=== PATIENT | male | born 1965 | race Caucasian/White ===

== ENCOUNTER 2017-07-06 09:54 | Inpatient (IN) | payer OTHER ==
[~2017-07-06] VITALS: Ht 177.8 cm; Wt 109.7 kg
[~2017-07-06 09:54] MED LIST: ACET-1256 PO; DIPH25CA65 PO; OMEP40CA PO; SERT-234 PO; TADA10TA PO
[2017-07-06 10:58] LABS: BASO % 0.5 %; BASO ABS # 0.04 K/uL (0-0.2); EOS % 1.8 %; EOS ABS # 0.14 K/uL (0-0.5); HEMATOCRIT 44.4 % (42-52); HEMOGLOBIN 15.3 g/dL (14.0-18.0); IG# 0.05 K/uL (0.00-0.02); LYMPH % 25.7 %; LYMPH ABS # 2.04 K/uL (1.2-3.4); MEAN CELL VOLUME 86.4 fL (80-100); MEAN CORPUSCULAR HEMOGLOBIN 29.8 pg (25-34); MEAN CORPUSCULAR HGB CONC 34.5 g/dl (32-36); MEAN PLATELET VOLUME 9.6 fL (7.4-10.4); MONO % 6.8 %; MONO ABS # 0.54 K/uL (0.11-0.59); NEUT % 64.6 %; NEUT ABS # 5.14 K/uL (1.4-6.5); PLATELET COUNT 175 K/uL (130-400); RED CELL DISTRIBUTION WIDTH CV 12.3 % (11.5-14.5); RED CELL DISTRIBUTION WIDTH SD 39.6 fL (36.4-46.3); WHITE BLOOD COUNT 7.95 K/uL (4.8-10.8)
--- NOTE | 2017-07-06 11:21 | DIAGNOSTIC IMAGING REPORT ---
CHEST ONE VIEW PORTABLE CLINICAL HISTORY: 52 years-old Male presenting with right cp eval for pna. TECHNIQUE: Portable upright AP view of the chest was obtained. COMPARISON: None. FINDINGS: Cardiomediastinal silhouette normal. Lungs and pleural spaces clear. Degenerative changes of the thoracic spine. Upper abdomen normal. IMPRESSION: 1. No acute cardiopulmonary disease. Electronically signed by: Jamal Sandy M.D. 07/06/2017 11:20 AM Dictated Date/Time: 07/06/2017 11:19 AM
[2017-07-06 11:36] LABS: PTT PATIENT 25.7 SECONDS (21.0-31.0)
[2017-07-06 11:47] LABS: CALCIUM 8.6 mg/dl (8.5-10.1); CREATININE 1.03 mg/dl (0.60-1.40); POTASSIUM 3.7 mmol/L (3.5-5.1)
[2017-07-06] MEDS ORDERED: ONDANSETRON INJ 2 MG/ML 2 ML VIAL IV STA (11:57)
[2017-07-06] MEDS ORDERED: MoRPHine SULFATE 10 MG/ML CARP/VIAL IV STA (11:57)
--- NOTE | 2017-07-06 12:51 | DIAGNOSTIC IMAGING REPORT ---
ABD/PELVIS WITHOUT FOR STONE CLINICAL HISTORY: 52 years-old Male presenting with right flank, chest pain that woke him up from sleep, similar also happened 2 weeks ago, eval for stone. TECHNIQUE: Multidetector CT of the abdomen and pelvis was performed without the use of intravenous contrast. IV contrast: None. A dose lowering technique was used consistent with the principles of ALARA (as low as reasonably achievable). COMPARISON: None. CT DOSE (mGy.cm): The estimated cumulative dose is 1999.03 mGy.cm. 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 Lung bases: Minimal basilar opacities, likely atelectasis. Multichamber enlargement of the heart. Coronary artery calcification. No pericardial or pleural effusion. Liver: Normal morphology. Density consistent with hepatic steatosis. Biliary: No gross biliary ductal dilatation allowing for noncontrast technique. Gallbladder contains gallstones. Pancreas: Mild parenchymal atrophy. Spleen: Normal noncontrast appearance. Splenule noted. Adrenal glands: Normal noncontrast appearance. Kidneys and ureters: Normal noncontrast appearance. No nephrolithiasis. No hydronephrosis. Normal ureters. Bladder: Incompletely evaluated secondary to underdistention. Pelvic organs: Prostate enlargement likely secondary to benign prostatic hyperplasia. Bowel: Diverticulosis of the descending and sigmoid colon. No pericolonic fat infiltration. The appendix is normal. No bowel obstruction. Feces noted in the distal small bowel likely indicating delayed transit. Peritoneal cavity: No free fluid or intraperitoneal gas. Lymph nodes: No gross lymphadenopathy allowing for noncontrast technique. Vasculature: Atherosclerosis of the normal caliber abdominal aorta. Abdominal wall: Bilateral varicoceles suggested. Fat-containing left inguinal hernia. Bilateral gynecomastia. Musculoskeletal: Degenerative changes of the spine. Limbus vertebral body at L5. Multiple prominent Schmorl's nodes. IMPRESSION: 1. Hepatic steatosis. Correlate with liver function tests to exclude steatohepatitis as a cause for abdominal pain. 2. Diverticulosis. No evidence of diverticulitis. 3. Cholelithiasis. No evidence of cholecystitis. 4. No nephrolithiasis or hydronephrosis. 5. Prostatomegaly. 6. Possible bilateral varicoceles. Electronically signed by: Jamal Sandy M.D. 07/06/2017 12:50 PM Dictated Date/Time: 07/06/2017 12:44 PM
[2017-07-06 14:30] LABS: ALBUMIN 3.7 gm/dl (3.4-5.0); TOTAL PROTEIN 7.4 gm/dl (6.4-8.2)
--- NOTE | 2017-07-06 14:57 | DIAGNOSTIC IMAGING REPORT ---
GALLBLADDER-ABD LIMITED CLINICAL HISTORY: 52 years-old Male presenting with ruq eval for cholecystitis. TECHNIQUE: Real-time grayscale and limited color Doppler ultrasound imaging of the abdomen limited to the right upper quadrant was performed. COMPARISON: None. FINDINGS: Pancreas: Largely obscured due to overlying bowel gas. Liver: Markedly hyperechogenic parenchyma with obscuration of the right hemidiaphragm, likely indicating marked hepatic steatosis. The liver measures 16.5 cm in maximal sagittal dimension. Focal fatty sparing in the gallbladder fossa. Main portal vein patent with normal directional flow. Biliary: No intrahepatic biliary ductal dilatation. Common bile duct measures up to 5 mm in diameter. Gallbladder: Gallstones without evidence of gallbladder distention, wall thickening, or pericholecystic fluid or inflammatory change. Gallbladder wall has an apparent thickness of 4 mm though it is poorly delineated secondary to the degree of hepatic steatosis. Right kidney: Normal in appearance. No hydronephrosis. Ascites: None. Other: None. IMPRESSION: 1. Cholelithiasis without evidence of biliary ductal dilatation. No convincing sonographic evidence of cholecystitis. If there is continuing clinical concern for this diagnosis, nuclear medicine HIDA scan could be obtained. 2. Hepatic steatosis. Correlate with liver function tests to exclude steatohepatitis as a cause for abdominal pain. Electronically signed by: Jamal Sandy M.D. 07/06/2017 2:55 PM Dictated Date/Time: 07/06/2017 2:53 PM
[2017-07-06] MEDS ORDERED: MoRPHine SULFATE 2 MG/ML CARP IV STA (16:04)
[2017-07-06] MEDS ORDERED: OPTIRAY 320 IV PRN (17:00)
--- NOTE | 2017-07-06 17:33 | DIAGNOSTIC IMAGING REPORT ---
(CHEST FOR PE) ANGIO WITH CLINICAL HISTORY: 52 years-old Male presenting with chest pain, ^eval for PE. TECHNIQUE: Multidetector CT angiography of the chest was performed after administration of intravenous contrast. 3-D volumetric and/or maximum intensity projection (MIP) images were subsequently reconstructed for review. IV contrast: 91 mL of Optiray 320. A dose lowering technique was used consistent with the principles of ALARA (as low as reasonably achievable). COMPARISON: Chest x-ray performed earlier the same day. CT DOSE (mGy.cm): The estimated cumulative dose is 579.55 mGy.cm. 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 Pulmonary vasculature: The study is suboptimal for the assessment of the pulmonary vascular tree secondary to respiratory motion artifact. Allowing for limited image quality, no central filling defect to suggest pulmonary embolus. Main pulmonary artery is not enlarged. No flattening of the interventricular septum. No intracardiac filling defect. No reflux of contrast into the hepatic veins. Remaining chest: On soft tissue windows, normal thyroid and thoracic inlet. No axillary, supraclavicular, hilar, or mediastinal lymphadenopathy. Normal aorta. Normal heart size. No pericardial or pleural effusion. Hepatic steatosis. On lung windows, focal consolidation in the lingula in a bandlike distribution. Mild subpleural reticulation and groundglass opacities dependently. Respiratory motion artifact degrades evaluation of lung parenchyma. Central airways patent. On bone windows, degenerative changes of the spine. IMPRESSION: 1. Allowing for suboptimal image quality, no evidence of pulmonary embolus. 2. Bibasilar atelectasis with focal subsegmental atelectasis or scarring in the lingula. No convincing evidence of other acute intrathoracic pathology. 3. Hepatic steatosis. Electronically signed by: Jamal Sandy M.D. 07/06/2017 5:31 PM Dictated Date/Time: 07/06/2017 5:26 PM
--- NOTE | 2017-07-06 17:37 | EMERGENCY ROOM VISIT NOTE ---
History Report prepared by Adilene: Madina Avilez Under the Supervision of: Dr. Bud Simmons M.D. First contact with patient: 10:39 Chief Complaint: CHEST PAIN Stated Complaint: CHEST PAIN Nursing Triage Summary: Pt states CP woke him up this AM, states same thing 2 weeks, but states lasted 2 hours, today pain not going away, denies being sweaty, states pain on right side, denies n/v, Pt a/ox4, skin w/d/i, color pink, pt states he feels hot, Lungs CTA abd soft positive BS, positive pulses History of Present Illness The patient is a 52 year old male who presents to the Emergency Room with complaints of constant chest pain starting 5 hours ago. The patient states that the pain is on the right side of his chest and shoots into his back. He describes the pain as sharp, a pressure, and a tightness. He notes that he is short of breath and it hasn't gone away. The patient states that nothing makes it worse. He states that he had this 2 weeks ago when he woke up in the middle of the night with it. He states that it went away after 2 hours and at the time he felt nauseous. The patient denies feeling nauseous today. The patient denies leg swelling and leg pain. 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 The patient denies ever having a clot in his legs or his lungs. He denies any abdominal pain and notes that the pain does not radiate into his arm or his neck. The patient notes a history of BPH, GERD, and anxiety. He denies this pain being like his GERD. The patient notes that he took his Cialis last night. The patient denies any urinary problems. Source of History: patient Onset: 5 hours ago Position: chest (right) Quality: pressure, sharp, other (tightness) Timing: constant Associated Symptoms: + SOB, + back pain, No nausea, No abdominal pain, No urinary symptoms Note: The patient denies leg swelling, leg pain, the pain radiating into his arm, and radiating into his neck. Review of Systems See HPI for pertinent positives & negatives. A total of 10 systems reviewed and were otherwise negative. Past Medical & Surgical Medical Problems: (1) Anxiety (2) BPH (benign prostatic hyperplasia) (3) Chest pain (4) GERD (gastroesophageal reflux disease) Family History Patient reports no known family medical history. Social History Smoking Status: Never Smoker Marital Status: Housing Status: lives with family Occupation Status: employed Current/Historical Medications Scheduled Omeprazole (Prilosec), 40 MG PO DAILY Sertraline (Zoloft), 100 MG PO BID Tadalafil (Cialis), 5 MG PO DAILY Scheduled PRN Acetaminophen (Tylenol), 1,000 MG PO Q6 PRN for Pain Allergies Coded Allergies: Aspirin (Unverified Allergy, Severe, STOMACH BLEEDING, 07/06/17) Adhesives (Unverified Allergy, Intermediate, RASH, 07/06/17) Ibuprofen (Unverified Allergy, Intermediate, RASH, 07/06/17) Physical Exam Vital Signs Date Time Temp Pulse Resp B/P (MAP) Pulse Ox O2 Delivery O2 Flow Rate FiO2 07/06/17 16:44 63 18 149/91 93 Room Air 07/06/17 15:30 61 18 138/92 93 Room Air 07/06/17 14:37 57 07/06/17 14:00 58 95 Room Air 154/103 07/06/17 13:30 59 17 161/94 98 Room Air 07/06/17 13:30 161/94 07/06/17 13:26 62 24 07/06/17 13:01 152/95 07/06/17 12:43 60 18 179/100 98 Room Air 07/06/17 12:43 179/100 07/06/17 12:26 64 07/06/17 12:21 55 18 147/106 95 Room Air 07/06/17 12:05 59 19 96 07/06/17 12:01 184/98 07/06/17 11:57 179/111 07/06/17 11:54 181/126 07/06/17 11:46 191/117 07/06/17 11:05 66 23 97 07/06/17 11:00 64 18 98 Room Air 150/100 07/06/17 10:54 61 16 97 07/06/17 10:50 100 Room Air 07/06/17 10:30 155/102 07/06/17 10:24 100 Room Air 07/06/17 10:24 65 07/06/17 10:23 181/107 07/06/17 10:17 161/98 07/06/17 10:17 100 Room Air 07/06/17 10:17 65 18 181/107 98 Room Air 07/06/17 10:04 36.4 66 18 170/99 95 Room Air Physical Exam Constitutional: Vital signs reviewed. Eyes: Pupils are equal round reactive to light. Conjunctiva are noninjected. ENT: Pharynx is clear without erythema or exudate. Mucous membranes are moist. Neck supple without meningeal signs. Respiratory: Clear to auscultation bilaterally. Breath sounds are equal bilaterally. Cardiovascular: Regular rate and rhythm. No rubs or gallops. GI: Soft, nondistended and nontender. Bowel sounds are present. Musculoskeletal: No peripheral edema. No lower extremity tenderness. No CVA tenderness. Integumentary: No cyanosis. Neurological: The patient is awake and alert. No focal deficits. Psychiatric: Normal affect. Medical Decision & Procedures ER Provider Diagnostic Interpretation: Radiology results as stated below per my review and the radiologist's interpretation: CHEST ONE VIEW PORTABLE CLINICAL HISTORY: 52 years-old Male presenting with right cp eval for pna. TECHNIQUE: Portable upright AP view of the chest was obtained. COMPARISON: None. FINDINGS: Cardiomediastinal silhouette normal. Lungs and pleural spaces clear. Degenerative changes of the thoracic spine. Upper abdomen normal. IMPRESSION: 1. No acute cardiopulmonary disease. Electronically signed by: Jamal Sandy M.D. 07/06/2017 11:20 AM Dictated Date/Time: 07/06/2017 11:19 AM ABD/PELVIS WITHOUT FOR STONE CLINICAL HISTORY: 52 years-old Male presenting with right flank, chest pain that woke him up from sleep, similar also happened 2 weeks ago, eval for stone. TECHNIQUE: Multidetector CT of the abdomen and pelvis was performed without the use of intravenous contrast. IV contrast: None. A dose lowering technique was used consistent with the principles of ALARA (as low as reasonably achievable). COMPARISON: None. CT DOSE (mGy.cm): The estimated cumulative dose is 1999.03 mGy.cm. FINDINGS: Outside Sales Representative topogram: Unremarkable. Lung bases: Minimal basilar opacities, likely atelectasis. Multichamber enlargement of the heart. Coronary artery calcification. No pericardial or pleural effusion. Liver: Normal morphology. Density consistent with hepatic steatosis. Biliary: No gross biliary ductal dilatation allowing for noncontrast technique. Gallbladder contains gallstones. Pancreas: Mild parenchymal atrophy. Spleen: Normal noncontrast appearance. Splenule noted. Adrenal glands: Normal noncontrast appearance. Kidneys and ureters: Normal noncontrast appearance. No nephrolithiasis. No hydronephrosis. Normal ureters. Bladder: Incompletely evaluated secondary to underdistention. Pelvic organs: Prostate enlargement likely secondary to benign prostatic hyperplasia. Bowel: Diverticulosis of the descending and sigmoid colon. No pericolonic fat infiltration. The appendix is normal. No bowel obstruction. Feces noted in the distal small bowel likely indicating delayed transit. Peritoneal cavity: No free fluid or intraperitoneal gas. Lymph nodes: No gross lymphadenopathy allowing for noncontrast technique. Vasculature: Atherosclerosis of the normal caliber abdominal aorta. Abdominal wall: Bilateral varicoceles suggested. Fat-containing left inguinal hernia. Bilateral gynecomastia. Musculoskeletal: Degenerative changes of the spine. Limbus vertebral body at L5. Multiple prominent Schmorl's nodes. IMPRESSION: 1. Hepatic steatosis. Correlate with liver function tests to exclude steatohepatitis as a cause for abdominal pain. 2. Diverticulosis. No evidence of diverticulitis. 3. Cholelithiasis. No evidence of cholecystitis. 4. No nephrolithiasis or hydronephrosis. 5. Prostatomegaly. 6. Possible bilateral varicoceles. Electronically signed by: Jamal Sandy M.D. 07/06/2017 12:50 PM Dictated Date/Time: 07/06/2017 12:44 PM GALLBLADDER-ABD LIMITED CLINICAL HISTORY: 52 years-old Male presenting with ruq eval for cholecystitis. TECHNIQUE: Real-time grayscale and limited color Doppler ultrasound imaging of the abdomen limited to the right upper quadrant was performed. COMPARISON: None. FINDINGS: Pancreas: Largely obscured due to overlying bowel gas. Liver: Markedly hyperechogenic parenchyma with obscuration of the right hemidiaphragm, likely indicating marked hepatic steatosis. The liver measures 16.5 cm in maximal sagittal dimension. Focal fatty sparing in the gallbladder fossa. Main portal vein patent with normal directional flow. Biliary: No intrahepatic biliary ductal dilatation. Common bile duct measures up to 5 mm in diameter. Gallbladder: Gallstones without evidence of gallbladder distention, wall thickening, or pericholecystic fluid or inflammatory change. Gallbladder wall has an apparent thickness of 4 mm though it is poorly delineated secondary to the degree of hepatic steatosis. Right kidney: Normal in appearance. No hydronephrosis. Ascites: None. Other: None. IMPRESSION: 1. Cholelithiasis without evidence of biliary ductal dilatation. No convincing sonographic evidence of cholecystitis. If there is continuing clinical concern for this diagnosis, nuclear medicine HIDA scan could be obtained. 2. Hepatic steatosis. Correlate with liver function tests to exclude steatohepatitis as a cause for abdominal pain. Electronically signed by: Jamal Sandy M.D. 07/06/2017 2:55 PM Dictated Date/Time: 07/06/2017 2:53 PM (CHEST FOR PE) ANGIO WITH CLINICAL HISTORY: 52 years-old Male presenting with chest pain, ^eval for PE. TECHNIQUE: Multidetector CT angiography of the chest was performed after administration of intravenous contrast. 3-D volumetric and/or maximum intensity projection (MIP) images were subsequently reconstructed for review. IV contrast: 91 mL of Optiray 320. A dose lowering technique was used consistent with the principles of ALARA (as low as reasonably achievable). COMPARISON: Chest x-ray performed earlier the same day. CT DOSE (mGy.cm): The estimated cumulative dose is 579.55 mGy.cm. FINDINGS: Outside Sales Representative topogram: Unremarkable. Pulmonary vasculature: The study is suboptimal for the assessment of the pulmonary vascular tree secondary to respiratory motion artifact. Allowing for limited image quality, no central filling defect to suggest pulmonary embolus. Main pulmonary artery is not enlarged. No flattening of the interventricular septum. No intracardiac filling defect. No reflux of contrast into the hepatic veins. Remaining chest: On soft tissue windows, normal thyroid and thoracic inlet. No axillary, supraclavicular, hilar, or mediastinal lymphadenopathy. Normal aorta. Normal heart size. No pericardial or pleural effusion. Hepatic steatosis. On lung windows, focal consolidation in the lingula in a bandlike distribution. Mild subpleural reticulation and groundglass opacities dependently. Respiratory motion artifact degrades evaluation of lung parenchyma. Central airways patent. On bone windows, degenerative changes of the spine. IMPRESSION: 1. Allowing for suboptimal image quality, no evidence of pulmonary embolus. 2. Bibasilar atelectasis with focal subsegmental atelectasis or scarring in the lingula. No convincing evidence of other acute intrathoracic pathology. 3. Hepatic steatosis. Laboratory Results 07/06/17 10:20 Red Blood Count 5.14, Mean Corpuscular Volume 86.4, Mean Corpuscular Hemoglobin 29.8, Mean Corpuscular Hemoglobin Concent 34.5, Mean Platelet Volume 9.6, Neutrophils (%) (Auto) 64.6, Lymphocytes (%) (Auto) 25.7, Monocytes (%) (Auto) 6.8, Eosinophils (%) (Auto) 1.8, Basophils (%) (Auto) 0.5, Neutrophils # (Auto) 5.14, Lymphocytes # (Auto) 2.04, Monocytes # (Auto) 0.54, Eosinophils # (Auto) 0.14, Basophils # (Auto) 0.04 07/06/17 11:19 Test 07/06/17 10:20 07/06/17 10:55 07/06/17 11:19 07/06/17 13:25 White Blood Count 7.95 K/uL (4.8-10.8) Red Blood Count 5.14 M/uL (4.7-6.1) Hemoglobin 15.3 g/dL (14.0-18.0) Hematocrit 44.4 % (42-52) Mean Corpuscular Volume 86.4 fL (80-100) Mean Corpuscular Hemoglobin 29.8 pg (25-34) Mean Corpuscular Hemoglobin Concent 34.5 g/dl (32-36) Platelet Count 175 K/uL (130-400) Mean Platelet Volume 9.6 fL (7.4-10.4) Neutrophils (%) (Auto) 64.6 % Lymphocytes (%) (Auto) 25.7 % Monocytes (%) (Auto) 6.8 % Eosinophils (%) (Auto) 1.8 % Basophils (%) (Auto) 0.5 % Neutrophils # (Auto) 5.14 K/uL (1.4-6.5) Lymphocytes # (Auto) 2.04 K/uL (1.2-3.4) Monocytes # (Auto) 0.54 K/uL (0.11-0.59) Eosinophils # (Auto) 0.14 K/uL (0-0.5) Basophils # (Auto) 0.04 K/uL (0-0.2) RDW Standard Deviation 39.6 fL (36.4-46.3) RDW Coefficient of Variation 12.3 % (11.5-14.5) Immature Granulocyte % (Auto) 0.6 % Immature Granulocyte # (Auto) 0.05 K/uL (0.00-0.02) Bedside D-Dimer 344 ng/mlFEU (0-450) Prothrombin Time 10.2 SECONDS (9.0-12.0) Prothromb Time International Ratio 1.0 (0.9-1.1) Activated Partial Thromboplast Time 25.7 SECONDS (21.0-31.0) Partial Thromboplastin Ratio 1.0 Anion Gap 6.0 mmol/L (3-11) Est Creatinine Clear Calc Drug Dose 102.8 ml/min Estimated GFR () 95.0 Estimated GFR (Non- 82.0 BUN/Creatinine Ratio 15.7 (10-20) Calcium Level 8.6 mg/dl (8.5-10.1) Total Bilirubin 0.9 mg/dl (0.2-1) Direct Bilirubin 0.2 mg/dl (0-0.2) Aspartate Amino Transf (AST/SGOT) 34 U/L (15-37) Alanine Aminotransferase (ALT/SGPT) 47 U/L (12-78) Alkaline Phosphatase 73 U/L (45-117) Total Protein 7.4 gm/dl (6.4-8.2) Albumin 3.7 gm/dl (3.4-5.0) Lipase 129 U/L (73-393) Urine Color YELLOW Urine Appearance CLEAR (CLEAR) Urine pH 5.0 (4.5-7.5) Urine Specific Meno 1.028 (1.000-1.030) Urine Protein NEG (NEG) Urine Glucose (UA) NEG (NEG) Urine Ketones NEG (NEG) Urine Occult Blood NEG (NEG) Urine Nitrite NEG (NEG) Urine Bilirubin NEG (NEG) Urine Urobilinogen NEG (NEG) Urine Leukocyte Esterase NEG (NEG) Test 07/06/17 16:15 Bedside Troponin I < 0.030 ng/ml (0-0.045) Laboratory results as reviewed by me. Medications Administered Medications (Trade) Dose Ordered Sig/Asmita Route Start Time Stop Time Status Last Admin Dose Admin Morphine Sulfate (MoRPHine SULFATE INJ) 6 mg NOW STAT IV 07/06/17 11:57 07/06/17 11:58 DC 07/06/17 12:08 6 MG Ondansetron HCl (Zofran Inj) 4 mg NOW STAT IV 07/06/17 11:57 07/06/17 11:58 DC 07/06/17 12:08 4 MG Morphine Sulfate (MoRPHine SULFATE INJ) 2 mg NOW STAT IV 07/06/17 16:04 07/06/17 16:05 DC 07/06/17 16:22 2 MG ECG Per My Interpretation Indication: chest pain Rate (beats per minute): 63 Rhythm: normal sinus Findings: Q waves (lead 3), other (no ST elevations) Comparison ECG Date: REPEAT Change: No prior available. REPEAT: Normal sinus rhythm at a rate of 62. Q wave in lead 3. No ST elevations. Unchanged from prior. ED Course 1041: The patient was evaluated in room A3. A complete history and physical exam was performed. 1156: I reevaluated the patient and his pain is much worse. He is nauseated. He states that the pain is more in the lower chest and upper abdomen. I will do a repeat EKG. 1157: Ordered Zofran Inj 4 mg IV, Morphine Sulfate 6 mg IV. 1301: I reevaluated the patient and he is feeling much better. 1315: I talked to the patient about his CT scan results. He states that he has been having right lower chest pain intermittently for 2 months. He reports that he has not noticed that it is related to food intake. No Menon sign currently. Minimal pain to palpation in RUQ on deep palpation. 1600: I reevaluated the patient and his pain is back. He is not short of breath. 1604: Ordered Morphine Sulfate 2 mg IV. 1643: I reevaluated the patient and his O2 was 88%, but he quickly climbed to 94 %. The states that it has been happening the whole time he has been here. 1659: I spoke with Dr. Robledo of [facility]. We discussed the patient and his results. The patient will be further evaluated by him. Medical Decision This is a 52-year-old male who presents with right-sided chest pain rating to his back. Differential diagnosis includes pulmonary embolism, unstable angina, [place], gallbladder disease, kidney stone. I did perform a limited focused review of portions of the patient's old chart on the electronic medical record. The patient has had no recent pertinent visits to this hospital. I did evaluate the patient as noted above. Patient is describing a sharp, tight and pressure-like pain in the right chest radiating to his right back. He had a prior episode about 2 weeks ago which only lasted a few hours. Today' s pain woke him up from sleep and has not gone away. IV access was established. The patient was placed on a continuous environmental monitoring technician. I did order and personally review the patient's 12-lead EKG and chest x-ray as described above. This twelve-lead EKG demonstrates a Q-wave in lead III only. Otherwise there are no ischemic changes. His chest x-ray is unremarkable. There is no widened mediastinum or infiltrate or pneumothorax. I did order and review the patient's blood work as noted in the electronic medical record. His troponin is negative. D-dimer is also negative. I did reassess the patient. The patient states his pain is getting much worse and he feels like he is going to throw up. He describes it in the upper abdomen and lower chest radiating to his back. He also further states that he has noticed similar pain in the right lower chest and upper abdomen for the past 2 months. It was sporadic and not related to any type of activity or eating. He was given morphine and Zofran for pain. He did feel much better afterwards. I did order a CT of the abdomen and pelvis. I did review the images myself as well as the radiology report as described above. The patient does not have any signs of kidney stone but he does have cholelithiasis. I did order an ultrasound of the right upper quadrant which demonstrated cholelithiasis but no evidence of cholecystitis. His LFTs are unremarkable. I did reassess the patient. He now states that his pain is now coming back. He again states that his pain is in the right upper abdomen and lower chest radiating to his back. He has no significant tenderness in the right upper quadrant. I did treat him with additional morphine and recommended hospitalization for further evaluation. I did discuss case with the hospitalist and showcase maker. I went to recheck on the patient later. He stated he felt better and his second troponin was negative. I noticed that his O2 saturation was 88% on room air with a good waveform. It slowly went up to 94 without any intervention. The stated that it has been doing that periodically throughout his ED stay. Because of this I felt was prudent to rule out pulmonary embolism. CT of the chest was performed but showed no evidence of pulmonary embolism. Medication Reconcilliation Current Medication List: was personally reviewed by me Blood Pressure Screening Patient's blood pressure: Elevated blood pressure Blood pressure disposition: Referred to PCP Will be further monitored by the hospitalist. Consults Time Called: 1604 Consulting Physician: Dr. Voss [facility] Returned Call: [address] Robledo of [facility]. We discussed the patient and his results. The patient will be further evaluated by him. Impression Primary Impression: Right flank pain Additional Impression: Cholelithiasis Scribe Attestation The scribe's documentation has been prepared under my direct and personally reviewed by me in its entirety. I confirm that the note above accurately reflects all work, treatment, procedures, and medical decision making performed by me. Departure Information Dispostion Being Evaluated By Hospitalist Referrals Jamal Echevarria M.D. (PCP) Patient Instructions [facility] Problem Qualifiers Additional Impression: Cholelithiasis Cholelithiasis location: gallbladder Cholecystitis presence: with cholecystitis Cholecystitis acuity: acute Biliary obstruction: without biliary obstruction Qualified Codes: K80.00 - Calculus of gallbladder with acute cholecystitis without obstruction
[2017-07-06] MEDS ORDERED: MoRPHine SULFATE 4 MG/ML 1 ML CARP\\VIAL IV PRN (17:45)
[2017-07-06] MEDS ORDERED: ALUMINUM/MAGNESIUM/SIMETH (MAALOX MAX) 30 ML UDC PO PRN (17:45)
[2017-07-06] MEDS ORDERED: NITROGLYCERIN 0.4 MG SL PER TAB CHARGE SL PRN (17:45)
[2017-07-06] MEDS ORDERED: ONDANSETRON INJ 2 MG/ML 2 ML VIAL IV PRN (17:45)
[2017-07-06] MEDS ORDERED: POLYETHYLENE (MIRALAX) 17 GM PACK PO PRN (17:45)
[2017-07-06] MEDS ORDERED: SERT-234 PO (17:47)
[2017-07-06] MEDS ORDERED: IV FLUIDS COMPLETED PRN (18:15)
[2017-07-06] MEDS: SODIUM CHLORIDE 0.9% 1000ML 1,000 ML IV SCH (18:30)
--- NOTE | 2017-07-06 18:56 | HISTORY & PHYSICAL EXAMINATION ---
DATE OF ADMISSION: 07/06/2017 CHIEF COMPLAINT: Right-sided chest pain. HISTORY OF PRESENT ILLNESS: A 52-year-old male with past medical history significant for GERD, anxiety, erectile dysfunction, lipid disorder, BPH, presents with right-sided abdominal pain. The patient says he woke up in the morning around 5:00 with severe lower right-sided chest pain radiating to his back associated with nausea and episode of vomiting and he came to the ER. The pain lasted almost until 3 p.m. and has subsided now. He received couple of doses of morphine in the ER. The patient says he had similar kind of pain a couple of weeks ago. At that time also he woke up in the night with the pain and it lasts about 2 hours and felt nauseous and then subsequently went to sleep. Since last 2 months he is feeling subjective fevers. Otherwise, he is doing okay. Denies any shortness of breath. No cough, no headaches, no dizziness, no earache. Recently had antibiotics for sinusitis. At that time, he had sore throat, but that is resolved now. No difficulty swallowing. No abdominal pain. Normal bowel and bladder movements. No skin rash. Currently, he is hemodynamically stable and resting comfortably. ALLERGIES: TO ASPIRIN, ADHESIVE TAPE, IBUPROFEN. PAST MEDICAL HISTORY: As mentioned above. PAST SURGICAL HISTORY: Colonoscopy, EGD, tonsillectomy, rotator cuff repair. MEDICATIONS AT HOME: The patient is on Prilosec 40 mg p.o. daily, Tylenol as needed, Zoloft 50 mg p.o. b.i.d. FAMILY HISTORY: Significant for father had basal cell cancer, diabetes, diverticulitis, [place] and had stents, obstructive sleep apnea, DJDs to the bone. Mother has osteoporosis, hypertension, heart disorder with CHF and stents. Brother has anxiety disorder. SOCIAL HISTORY: . Never smoked. Alcohol occasional. No drug use. REVIEW OF SYMPTOMS: As per HPI. Rest of review of symptoms negative. PHYSICAL EXAMINATION: GENERAL: The patient is of moderate build, not in distress. VITAL SIGNS: Temperature afebrile, pulse 62, respiratory rate 18, blood pressure 114/91 and oxygen 93% on room air. HEENT: No pallor, no icterus. Pupils equal, round, and react to light. NECK: No JVD, no neck masses, no carotid bruit. CARDIOVASCULAR: S1, S2 heard, regular rate and rhythm, no murmur, no gallop. RESPIRATORY SYSTEM: Normal AP diameter. No accessory muscle use. No wheezing, no crackles. ABDOMEN: Soft. Bowel sounds present. Nontender. No distention. No tenderness. CENTRAL NERVOUS SYSTEM: Cranial nerves II-XII grossly intact. Nonfocal. EXTREMITIES: No edema, no erythema. LABORATORIES: Sodium 140, potassium 3.7, chloride 109, bicarbonate 25, BUN 16, creatinine 1.03, serum glucose 146, calcium 8.6, total bilirubin 0.9, direct bilirubin 0.2, AST 34, ALT 47, alkaline phosphatase 73. Point of care troponin less than 0.03, lipase 129. WBC 7.9, hemoglobin 15.3, hematocrit 44.4, platelets 175. PT 10.2, INR 1, APTT 25.7. Urinalysis negative. Chest x-ray: No acute cardiopulmonary disease seen. CT of abdomen and pelvis shows hepatic steatosis, diverticulosis, cholelithiasis. No evidence of cholecystitis, hepatomegaly. Gallbladder ultrasound, cholelithiasis without evidence of biliary ductal dilatation, no sonographic evidence of cholecystitis. If there is clinical concern, nuclear HIDA scan is recommended. Hepatic steatosis. CT of the chest, no PE; bibasilar atelectasis; no acute intrathoracic pathology is seen. EKG: Normal sinus rhythm, no acute ST changes seen. ASSESSMENT AND PLAN: This is a 52-year-old male who presents with right lower chest pain. 1. Right lower chest pain radiating to back. Cardiac enzymes negative. EKG unremarkable. CAT scan and ultrasound showed gallstones. CT chest, no PE, no intrathoracic pathology is seen. Most likely pain from biliary colic. We will get a HIDA scan, observe in tele floor, and also get serial cardiac enzymes and echocardiogram. Gentle fluids, IV antiemetics, and pain medications p.r.n. 2. History of anxiety. Continue Zoloft. 3. History of gastroesophageal reflux disease. Continue Prilosec. 4. History of lipid disorder, not on medication. Follow the fasting lipid panel and also HbA1c levels. 5. Deep venous thrombosis prophylaxis, SCDs for now. 6. Disposition: Observation tele floor. Expect to discharge home and follow with his family doctor. Level 1 full code. MTDD
[2017-07-06 20:00] VITALS: BP 157/84; PULSE 67; TEMP 37.1; O2SAT 97; Ht 177.8 cm; Wt 109.7 kg
[2017-07-06] MEDS: SERTRALINE HCL 100 MG TAB PO SCH (20:09)
[2017-07-06] MEDS ORDERED: SERTRALINE HCL 100 MG TAB PO SCH (21:00)
[2017-07-07 00:44] VITALS: BP 106/64; PULSE 63; TEMP 36.8; O2SAT 94
[2017-07-07 04:04] VITALS: BP 111/63; PULSE 60; TEMP 36.9; O2SAT 94
[2017-07-07 06:11] LABS: BASO % 0.2 %; BASO ABS # 0.02 K/uL (0-0.2); EOS % 1.9 %; EOS ABS # 0.18 K/uL (0-0.5); HEMATOCRIT 39.8 % (42-52); HEMOGLOBIN 13.6 g/dL (14.0-18.0); IG# 0.05 K/uL (0.00-0.02); LYMPH % 27.7 %; LYMPH ABS # 2.64 K/uL (1.2-3.4); MEAN CELL VOLUME 88.1 fL (80-100); MEAN CORPUSCULAR HEMOGLOBIN 30.1 pg (25-34); MEAN CORPUSCULAR HGB CONC 34.2 g/dl (32-36); MEAN PLATELET VOLUME 9.6 fL (7.4-10.4); MONO % 10.6 %; MONO ABS # 1.01 K/uL (0.11-0.59); NEUT % 59.1 %; NEUT ABS # 5.62 K/uL (1.4-6.5); PLATELET COUNT 145 K/uL (130-400); RED CELL DISTRIBUTION WIDTH CV 12.4 % (11.5-14.5); RED CELL DISTRIBUTION WIDTH SD 39.7 fL (36.4-46.3); WHITE BLOOD COUNT 9.52 K/uL (4.8-10.8)
[2017-07-07 06:48] LABS: BLOOD UREA NITROGEN 17 mg/dl (7-18); CALCIUM 8.5 mg/dl (8.5-10.1); CARBON DIOXIDE 28 mmol/L (21-32); CREATININE 1.16 mg/dl (0.60-1.40); GLUCOSE 96 mg/dl (70-99); POTASSIUM 4.1 mmol/L (3.5-5.1); SODIUM 138 mmol/L (136-145)
[2017-07-07 06:54] LABS: CHOLESTEROL 188 mg/dl (0-200); LDL CHOLESTEROL CALCULATED 124 mg/dl
[2017-07-07 07:49] LABS: HEMOGLOBIN A1C 5.7 % (4.5-5.6)
[2017-07-07 08:22] VITALS: BP 120/73; PULSE 64; TEMP 36.8; O2SAT 93
[2017-07-07] MEDS ORDERED: MoRPHine SULFATE 2 MG/ML CARP ONE (09:12)
[2017-07-07] MEDS: SERTRALINE HCL 100 MG TAB PO SCH (09:58)
[2017-07-07] MEDS: PANTOprazole SOD 40 MG TAB PO SCH (09:58)
[2017-07-07] MEDS: ACETAMINOPHEN 325 MG TAB PO PRN ×2 (10:00→20:41)
--- NOTE | 2017-07-07 10:21 | DIAGNOSTIC IMAGING REPORT ---
NUCLEAR MEDICINE HEPATOBILIARY SCAN CLINICAL HISTORY: Right upper quadrant abdominal pain. Gallstones. COMPARISON STUDY: Biliary ultrasound dated 07/06/2017 FINDINGS: The patient was injected with 5.2 mCi of technetium 99m Choletec. Anterior imaging was performed. Hepatic excretion appeared unremarkable. There was normal patches of activity into small bowel. The gallbladder was not visualized at 1 hour. The patient was injected with 2 mg of intravenous morphine. Imaging for an additional 30 minutes was performed. There was faint visualization of the gallbladder. Chronic cholecystitis is suspected. The cystic duct is felt to be patent. IMPRESSION: 1. Delayed visualization of the gallbladder. The findings suggest chronic cholecystitis. The cystic duct is felt to be currently patent Electronically signed by: Tez Zafar M.D. 07/07/2017 10:20 AM Dictated Date/Time: 07/07/2017 10:17 AM
--- NOTE | 2017-07-07 12:14 | Medical Consult ---
Consultation Date of Consultation: Jul 07, 2017. Attending Physician: Mukul Robledo MD Reason for Consultation: Chronic Cholecystitis History of Present Illness 52-year-old male with past medical history significant for GERD (previous EGD), erectile dysfunction, hyperlipidemia, BPH presented to [facility] ED yesterday with complaints of right-sided chest pain. Patient reports that pain was in right upper quadrant and radiated up chest wall into right shoulder and around to back. He states that the pain woke him up from his sleep early Friday morning. He reports that he was nauseous, but did not vomit. He had a previous episode with similar symptoms 2 weeks ago, Easter. He states that he has had dull right upper quadrant pain for the last several months that he believed was muscular. Patient reports subjective fever and chills for the last several weeks. Last colonoscopy was 2 years ago with an every 5 year follow-up colonoscopy. Admission labs- LFTs within normal limits. WBC within normal limits. Vital signs stable. Past Medical/Surgical History Medical Problems: (1) Cholelithiasis Status: Acute (2) Right flank pain Status: Acute Surgical History 1. Colonoscopy 2. EGD 3. Tonsillectomy 4. Rotator Cuff Repair Family History Patient reports no known family medical history. Social History Smoking Status: Never Smoker Marital Status: Housing Status: lives with family Occupation Status: employed Allergies Coded Allergies: Aspirin (Unverified Allergy, Severe, STOMACH BLEEDING, 07/06/17) Adhesives (Unverified Allergy, Intermediate, RASH, 07/06/17) Ibuprofen (Unverified Allergy, Intermediate, RASH, 07/06/17) Current Inpatient Medications Current Inpatient Medications Medications (Trade) Dose Ordered Sig/Asmita Route Start Time Stop Time Status Last Admin Dose Admin Ioversol (Optiray 320) 100 ml UD PRN IV 07/06/17 17:00 07/10/17 16:59 Sodium Chloride 1,000 ml @ 50 mls/hr Q20H IV 07/06/17 17:35 08/05/17 17:34 07/06/17 18:30 50 MLS/HR Acetaminophen (Tylenol Tab) 650 mg Q4H PRN PO 07/06/17 17:45 08/05/17 17:44 07/07/17 10:00 650 MG Al Hydrox/Mg Hydrox/Simethicone (Maalox Max Susp) 15 ml Q4H PRN PO 07/06/17 17:45 08/05/17 17:44 Ondansetron HCl (Zofran Inj) 4 mg Q6H PRN IV 07/06/17 17:45 08/05/17 17:44 Nitroglycerin (Nitrostat Tab) 0.4 mg UD PRN SL 07/06/17 17:45 08/05/17 17:44 Polyethylene (Miralax Powder Packet) 17 gm DAILY PRN PO 07/06/17 17:45 08/05/17 17:44 Pantoprazole Sodium (Protonix Tab) 40 mg DAILY PO 07/07/17 09:00 08/06/17 08:59 07/07/17 09:58 40 MG Morphine Sulfate (MoRPHine SULFATE INJ) 3 mg Q3HWA PRN IV 07/06/17 17:45 07/20/17 17:44 Sertraline HCl (Zoloft Tab) 100 mg DAILY PO 07/07/17 09:00 08/05/17 20:59 07/06/17 20:09 100 MG Miscellaneous (Iv Fluids Completed) 1 ea PRN PRN N/A 07/06/17 18:15 07/06/18 18:14 Review of Systems Constitutional: No fever, No chills, No fatigue Respiratory: No cough Abdomen: No pain (resolved since admission ), No nausea, No vomiting, No diarrhea, No constipation Physical Exam Date Time Temp Pulse Resp B/P (MAP) Pulse Ox O2 Delivery O2 Flow Rate FiO2 07/07/17 08:22 36.8 64 20 120/73 (89) 93 Room Air 07/07/17 08:00 Room Air 07/07/17 04:04 36.9 60 18 111/63 (79) 94 07/07/17 04:00 Room Air 07/07/17 00:44 36.8 63 18 106/64 (78) 94 07/07/17 00:02 Room Air 07/06/17 20:00 Room Air 07/06/17 20:00 37.1 67 20 157/84 (108) 97 Room Air 07/06/17 20:00 37.1 67 20 157/84 97 Room Air 07/06/17 18:07 64 18 131/88 94 Room Air 07/06/17 16:44 63 18 149/91 93 Room Air 07/06/17 15:30 61 18 138/92 93 Room Air 07/06/17 14:37 57 07/06/17 14:00 58 95 Room Air 154/103 07/06/17 13:30 59 17 161/94 98 Room Air 07/06/17 13:30 161/94 07/06/17 13:26 62 24 07/06/17 13:01 152/95 07/06/17 12:43 60 18 179/100 98 Room Air 07/06/17 12:43 179/100 07/06/17 12:26 64 07/06/17 12:21 55 18 147/106 95 Room Air 07/06/17 12:05 59 19 96 07/06/17 12:01 184/98 07/06/17 11:57 179/111 General Appearance: WD/WN, no apparent distress Head: normocephalic, atraumatic Respiratory/Chest: no respiratory distress, no accessory muscle use Abdomen/GI: normal bowel sounds, non tender, soft Skin: normal color, warm/dry, no rash Laboratory Results Last 24 Hours Test 07/06/17 13:25 07/06/17 16:15 07/07/17 05:44 Urine Color YELLOW Urine Appearance CLEAR Urine pH 5.0 Urine Specific [place] 1.028 Urine Protein NEG Urine Glucose (UA) NEG Urine Ketones NEG Urine Occult Blood NEG Urine Nitrite NEG Urine Bilirubin NEG Urine Urobilinogen NEG Urine Leukocyte Esterase NEG Bedside Troponin I < 0.030 ng/ml White Blood Count 9.52 K/uL Red Blood Count 4.52 M/uL Hemoglobin 13.6 g/dL Hematocrit 39.8 % Mean Corpuscular Volume 88.1 fL Mean Corpuscular Hemoglobin 30.1 pg Mean Corpuscular Hemoglobin Concent 34.2 g/dl Platelet Count 145 K/uL Mean Platelet Volume 9.6 fL Neutrophils (%) (Auto) 59.1 % Lymphocytes (%) (Auto) 27.7 % Monocytes (%) (Auto) 10.6 % Eosinophils (%) (Auto) 1.9 % Basophils (%) (Auto) 0.2 % Neutrophils # (Auto) 5.62 K/uL Lymphocytes # (Auto) 2.64 K/uL Monocytes # (Auto) 1.01 K/uL Eosinophils # (Auto) 0.18 K/uL Basophils # (Auto) 0.02 K/uL RDW Standard Deviation 39.7 fL RDW Coefficient of Variation 12.4 % Immature Granulocyte % (Auto) 0.5 % Immature Granulocyte # (Auto) 0.05 K/uL Sodium Level 138 mmol/L Potassium Level 4.1 mmol/L Chloride Level 105 mmol/L Carbon Dioxide Level 28 mmol/L Anion Gap 5.0 mmol/L Blood Urea Nitrogen 17 mg/dl Creatinine 1.16 mg/dl Est Creatinine Clear Calc Drug Dose 90.3 ml/min Estimated GFR () 82.3 Estimated GFR (Non- 71.0 BUN/Creatinine Ratio 14.6 Random Glucose 96 mg/dl Estimated Average Glucose 117 mg/dl Hemoglobin A1c 5.7 % Calcium Level 8.5 mg/dl Magnesium Level 2.3 mg/dl Troponin I < 0.015 ng/ml Triglycerides Level 168 mg/dl Cholesterol Level 188 mg/dl HDL Cholesterol 30 mg/dl LDL Cholesterol, Calculated 124 mg/dl VLDL Cholesterol, Calculated 34 mg/dl Cholesterol/HDL Ratio 6.3 Hepatitis C Antibody Screen NEG HIDA Scan IMPRESSION: 1. Delayed visualization of the gallbladder. The findings suggest chronic cholecystitis. The cystic duct is felt to be currently patent CT Abdomen/Pelvis IMPRESSION: 1. Hepatic steatosis. Correlate with liver function tests to exclude steatohepatitis as a cause for abdominal pain. 2. Diverticulosis. No evidence of diverticulitis. 3. Cholelithiasis. No evidence of cholecystitis. 4. No nephrolithiasis or hydronephrosis. 5. Prostatomegaly. 6. Possible bilateral varicoceles. Ultrasound of Gallbladder IMPRESSION: 1. Cholelithiasis without evidence of biliary ductal dilatation. No convincing sonographic evidence of cholecystitis. If there is continuing clinical concern for this diagnosis, nuclear medicine HIDA scan could be obtained. 2. Hepatic steatosis. Correlate with liver function tests to exclude steatohepatitis as a cause for abdominal pain. Assessment & Plan 52-year-old male, chronic cholecystitis, cholelithiasis Patient seen and examined with Dr. Estrada. Recent labs and imaging reviewed. Patient's symptoms most likely stemming from gallbladder. Recommend cholecystectomy. Patient would like to proceed with cholecystectomy during this hospital stay. At time of consult, patient was provided a diet and had consumed a small meal just before consultation. Will proceed with Laparoscopic Cholecystectomy, Possible Open with Possible Intraoperative Cholangiogram tomorrow in OR 7:15AM. OR notified. Patient NPO after midnight. Surgery reviewed and discussed with patient and family member. Risks of surgery including, but not limited to bleeding, infection, injury to surrounding organs and structures, stroke, heart attack, blood clots discussed with patient. Patient verbalized understanding and agreement with plan. Please call with questions or concerns.
[2017-07-07 12:45] VITALS: BP 132/82; PULSE 66; TEMP 36.8; O2SAT 98
[2017-07-07] MEDS: SODIUM CHLORIDE 0.9% 1000ML 1,000 ML IV SCH (13:49)
[2017-07-07] MEDS ORDERED: PERFLUTREN LIPID MICROSPHERE (DEFINITY) IV ONE (15:24)
[2017-07-07 15:31] VITALS: BP 132/84; PULSE 64; TEMP 36.5; O2SAT 92
--- NOTE | 2017-07-07 16:42 | Progress Note ---
Progress Note Date of Service Jul 07, 2017. Progress Note Pt is scheduled for lap jhony with Dr. Estrada tomorrow. Pt seen and interviewed. PMH of hyperlipidemia not on any medication, controlled GERD. EKG with nsr @62 bpm. Plan of GA with ETT was explained to patient including risks. Pt understood and consent was signed. Pt was advised to be NPO except for sips of water with meds in am of surgery.
--- NOTE | 2017-07-07 17:32 | Progress Note ---
Internal Med Progress Note Date of Service: Jul 07, 2017. Provider Documentation: SUBJECTIVE: eating dinner says had similar lower right side chest pain last night fore short period of time and subsided was nauseous in the morning afebrile no sob or cough awaiting surgery tomorrow OBJECTIVE: Vital Signs-as noted below Exam: General-alert and oriented. Not in distress ENT-normal hearing. Neck-No neck masses Lungs-CTA b/l no wheezing or crackles Heart-S1 and S2 heard regular rate and rhythm no murmurs Abdomen-soft Bowels sounds present non tender no distension Extremities-no edema no erythema Neuro-alert and oriented moves extremities Lab data as noted below. ASSESSMENT & PLAN: This is a 52-year-old male who presents with right lower chest pain. 1. Right lower chest pain radiating to back. Cardiac enzymes negative. EKG unremarkable. CAT scan and ultrasound showed gallstones. CT chest, no PE, no intrathoracic pathology is seen. Most likely pain from biliary colic. HIDA scan consistent with chronic cholecystitis. Plan for surgery in am. IF echo unremarkable can be transferred to medical floor. 2. Chronic cholecystitis plan for lap jhony in am. 3. History of anxiety. Continue Zoloft. 4. History of gastroesophageal reflux disease. Continue Prilosec. 5. History of lipid disorder, not on medication. LDL 124 HDL 30 HbA1c 5.7 6. Deep venous thrombosis prophylaxis, SCDs for now. 7. Disposition: To be determined Vital Signs: Date Time Temp Pulse Resp B/P (MAP) Pulse Ox O2 Delivery O2 Flow Rate FiO2 07/07/17 16:00 Room Air 07/07/17 15:31 36.5 64 18 132/84 (100) 92 Room Air 07/07/17 12:45 36.8 66 16 132/82 (99) 98 Room Air 07/07/17 12:00 Room Air 07/07/17 08:22 36.8 64 20 120/73 (89) 93 Room Air 07/07/17 08:00 Room Air 07/07/17 04:04 36.9 60 18 111/63 (79) 94 07/07/17 04:00 Room Air 07/07/17 00:44 36.8 63 18 106/64 (78) 94 07/07/17 00:02 Room Air 07/06/17 20:00 Room Air 07/06/17 20:00 37.1 67 20 157/84 (108) 97 Room Air 07/06/17 20:00 37.1 67 20 157/84 97 Room Air 07/06/17 18:07 64 18 131/88 94 Room Air Lab Results: Results Past 24 Hours Test 07/07/17 05:44 Range/Units White Blood Count 9.52 4.8-10.8 K/uL Red Blood Count 4.52 4.7-6.1 M/uL Hemoglobin 13.6 14.0-18.0 g/dL Hematocrit 39.8 42-52 % Mean Corpuscular Volume 88.1 80-100 fL Mean Corpuscular Hemoglobin 30.1 25-34 pg Mean Corpuscular Hemoglobin Concent 34.2 32-36 g/dl Platelet Count 145 130-400 K/uL Mean Platelet Volume 9.6 7.4-10.4 fL Neutrophils (%) (Auto) 59.1 % Lymphocytes (%) (Auto) 27.7 % Monocytes (%) (Auto) 10.6 % Eosinophils (%) (Auto) 1.9 % Basophils (%) (Auto) 0.2 % Neutrophils # (Auto) 5.62 1.4-6.5 K/uL Lymphocytes # (Auto) 2.64 1.2-3.4 K/uL Monocytes # (Auto) 1.01 0.11-0.59 K/uL Eosinophils # (Auto) 0.18 0-0.5 K/uL Basophils # (Auto) 0.02 0-0.2 K/uL RDW Standard Deviation 39.7 36.4-46.3 fL RDW Coefficient of Variation 12.4 11.5-14.5 % Immature Granulocyte % (Auto) 0.5 % Immature Granulocyte # (Auto) 0.05 0.00-0.02 K/uL Sodium Level 138 136-145 mmol/L Potassium Level 4.1 3.5-5.1 mmol/L Chloride Level 105 98-107 mmol/L Carbon Dioxide Level 28 21-32 mmol/L Anion Gap 5.0 3-11 mmol/L Blood Urea Nitrogen 17 7-18 mg/dl Creatinine 1.16 0.60-1.40 mg/dl Est Creatinine Clear Calc Drug Dose 90.3 ml/min Estimated GFR () 82.3 Estimated GFR (Non- 71.0 BUN/Creatinine Ratio 14.6 10-20 Random Glucose 96 70-99 mg/dl Estimated Average Glucose 117 mg/dl Hemoglobin A1c 5.7 4.5-5.6 % Calcium Level 8.5 8.5-10.1 mg/dl Magnesium Level 2.3 1.8-2.4 mg/dl Troponin I < 0.015 0-0.045 ng/ml Triglycerides Level 168 0-150 mg/dl Cholesterol Level 188 0-200 mg/dl HDL Cholesterol 30 mg/dl LDL Cholesterol, Calculated 124 mg/dl VLDL Cholesterol, Calculated 34 mg/dl Cholesterol/HDL Ratio 6.3 Hepatitis C Antibody Screen NEG NEG
--- NOTE | 2017-07-07 18:25 | ECHOCARDIOGRAM REPORT ---
*NOTICE TO RECEIVING DEMOCRAT AGENCY This information is strictly Confidential and protected under [place] law. [place] law prohibits you from making any further disclosure of this information unless further disclosure is expressly permitted by the written consent of the person to whom it pertains or is authorized by law. A general authorization for the release of medical or other information is not sufficient for this purpose. Hospital accepts no responsibility if the information is made available to any other person, INCLUDING THE PATIENT. Interpretation Summary * Name: CRISTIAN GUALLPA Study Date: 07/07/2017 03:04 PM BP: 132/82 mmHg * Patient Location: [facility] HR: 66 * : 1965 (M/d/yyyy) Gender: Male Height: 70 in * Age: 52 yrs Ethnicity: CA Weight: 247 lb * Performed By: Lacie Luna RDCS * * Reason For Study: CHEST PAIN * BSA: 2.3 m2 * The study was technically adequate. * -- Conclusions -- * The left ventricular wall motion is normal. * The left ventricular ejection Fraction = 55-60%. * Left ventricular diastolic function is normal. * There is no significant valvular heart disease. * There is borderline concentric left ventricular hypertrophy. Procedure Details * A contrast injection of Definity was performed to improve assessment of LV function. * Contrast was injected into an intravenous site in the left arm. * One vial of Definity ultrasound contrast was diluted in normal saline to a total volume of 10 ml. A total of '1' ml of solution was administered during imaging. * Lot # [id number] of Definity utilized for procedure. * Expiration date JUL 10. * The attending nurse who injected the contrast agent was CHAIM BERNAL. * A complete two-dimensional transthoracic echocardiogram was performed (2D, M-mode, Doppler and color flow Doppler). Left Ventricle * The left ventricle is normal in size. * There is borderline concentric left ventricular hypertrophy. * Ejection Fraction = 55-60%. * Left ventricular systolic function is normal. * The left ventricular wall motion is normal. Right Ventricle * The right ventricle is normal size. * The right ventricular systolic function is normal as assessed by tricuspid annular plane systolic excursion (TAPSE) (normal >1.5 cm). Atria * The left atrial size is normal. * Right atrial size is normal. * There is no evidence of atrial septal defect, but resolution does not allow assessment for a patent foramen ovale. Mitral Valve * The mitral valve is normal. * There is no mitral valve stenosis. * Significant mitral regurgitation is absent. Tricuspid Valve * The tricuspid valve is normal. * There is no tricuspid stenosis. * Significant tricuspid regurgitation is absent. * Doppler findings do not suggest pulmonary hypertension. Aortic Valve * The aortic valve is trileaflet. * Aortic stenosis is absent. * There is no significant aortic regurgitation. Pulmonic Valve * The pulmonary valve is not well seen, but the Doppler examination is normal without significant regurgitation or stenosis. Great Vessels * The aortic root and proximal ascending aorta are normal sized. Pericardium/Pleural * There is no pericardial effusion. Great Vessels * Normal inferior vena cava diameter and respiratory variation suggests normal central venous pressure. Left Ventricular Diastolic Function * Left ventricular diastolic function is normal. MMode 2D Measurements and Calculations IVSd 1.3 cm IVSs 1.7 cm LVIDd 4.6 cm LVIDs 3.1 cm LVPWd 1.1 cm LVPWs 1.8 cm IVS/LVPW 1.1 FS 33.0 % EDV(Teich) 99.3 ml ESV(Teich) 38.2 ml EF(Teich) 61.6 % EDV(cubed) 99.9 ml ESV(cubed) 30.0 ml EF(cubed) 69.9 % % IVS thick 38.7 % % LVPW thick 62.7 % LV mass(C)d 205.3 grams LV mass(C)dI 89.9 grams/m\S\2 LV mass(C)s 223.8 grams LV mass(C)sI 98.0 grams/m\S\2 SV(Teich) 61.2 ml SI(Teich) 26.8 ml/m\S\2 SV(cubed) 69.8 ml SI(cubed) 30.6 ml/m\S\2 LA dimension 3.9 cm LVAd ap4 31.0 cm\S\2 LVLd ap4 8.1 cm EDV(MOD-sp4) 93.5 ml EDV(sp4-el) 100.4 ml LVAs ap4 17.2 cm\S\2 LVLs ap4 6.9 cm ESV(MOD-sp4) 34.3 ml ESV(sp4-el) 36.2 ml EF(MOD-sp4) 63.3 % EF(sp4-el) 64.0 % LVAd ap2 30.5 cm\S\2 LVLd ap2 8.5 cm EDV(MOD-sp2) 87.8 ml EDV(sp2-el) 93.0 ml LVAs ap2 18.8 cm\S\2 LVLs ap2 7.7 cm ESV(MOD-sp2) 37.5 ml ESV(sp2-el) 39.2 ml EF(MOD-sp2) 57.3 % EF(sp2-el) 57.9 % LVLd %diff 4.5 % EDV(MOD-bp) 90.6 ml LVLs %diff 9.6 % ESV(MOD-bp) 36.2 ml EF(MOD-bp) 60.0 % SV(MOD-sp4) 59.1 ml SI(MOD-sp4) 25.9 ml/m\S\2 SV(MOD-sp2) 50.3 ml SI(MOD-sp2) 22.0 ml/m\S\2 SV(MOD-bp) 54.4 ml SI(MOD-bp) 23.8 ml/m\S\2 SV(sp4-el) 64.2 ml SI(sp4-el) 28.1 ml/m\S\2 SV(sp2-el) 53.8 ml SI(sp2-el) 23.6 ml/m\S\2 Doppler Measurements and Calculations MV E max dayanara 87.7 cm/sec MV A max dayanara 60.8 cm/sec MV E/A 1.4 MV dec time 0.31 sec Ao V2 max 122.5 cm/sec Ao max PG 6.0 mmHg Ao max PG (full) 1.9 mmHg LV V1 max PG 4.1 mmHg LV V1 max 100.8 cm/sec
[2017-07-07] MEDS ORDERED: NURSING VERBAL MED ORDER ONE (19:15)
[2017-07-07 19:27] VITALS: BP 139/83; PULSE 63; TEMP 37; O2SAT 95
[2017-07-07] MEDS ORDERED: SERTRALINE HCL 100 MG TAB PO SCH (21:00)
[2017-07-08] VITALS (7 sets, daily range): BP systolic 106–148; BP diastolic 61–84; PULSE 55–87; TEMP 36.5–37; O2SAT 92–96
[2017-07-08] MEDS ORDERED: FENTANYL CITRATE INJ 50 MCG/1 ML 2 ML VIAL ONE ×2 (06:43→09:03)
[2017-07-08] MEDS ORDERED: MIDAZOLAM HCL 1 MG/ML 2ML VIAL ONE (06:43)
[2017-07-08 06:45] LABS: BASO % 0.4 %; BASO ABS # 0.03 K/uL (0-0.2); EOS % 3.1 %; EOS ABS # 0.22 K/uL (0-0.5); HEMATOCRIT 39.8 % (42-52); HEMOGLOBIN 13.5 g/dL (14.0-18.0); IG# 0.04 K/uL (0.00-0.02); LYMPH % 37.2 %; LYMPH ABS # 2.67 K/uL (1.2-3.4); MEAN CELL VOLUME 87.9 fL (80-100); MEAN CORPUSCULAR HEMOGLOBIN 29.8 pg (25-34); MEAN CORPUSCULAR HGB CONC 33.9 g/dl (32-36); MEAN PLATELET VOLUME 9.7 fL (7.4-10.4); MONO % 10.6 %; MONO ABS # 0.76 K/uL (0.11-0.59); NEUT % 48.1 %; NEUT ABS # 3.45 K/uL (1.4-6.5); PLATELET COUNT 152 K/uL (130-400); RED CELL DISTRIBUTION WIDTH CV 12.1 % (11.5-14.5); RED CELL DISTRIBUTION WIDTH SD 38.6 fL (36.4-46.3); WHITE BLOOD COUNT 7.17 K/uL (4.8-10.8)
[2017-07-08] MEDS ORDERED: PROPOFOL IV EMULSION 10 MG/ML 20 ML VIAL IV ONE (06:45)
[2017-07-08] MEDS ORDERED: ROCURONIUM BROMIDE 10 MG/ML 5 ML VIAL IV ONE (06:47)
[2017-07-08] MEDS ORDERED: LIDOCAINE HCL 2% 2 ML VIAL (20MG/ML) ONE (06:53)
[2017-07-08] MEDS ORDERED: BUPIVACAINE 0.5 % 5 MG/1 ML MPF 30ML VIAL ONE (07:10)
[2017-07-08 07:16] LABS: CREATININE 0.99 mg/dl (0.60-1.40); POTASSIUM 3.9 mmol/L (3.5-5.1)
--- NOTE | 2017-07-08 07:21 | History & Physical Bridge Note ---
H&P Re-Evaluation Bridge Note: I have examined the patient, reviewed the History & Physical and in the interval since the performance of the History & Physical I have noted the following changes of clinical significance: No changes noted
--- NOTE | 2017-07-08 07:23 | Surgery Progress Note ---
Surgery Progress Note Date of Service Jul 08, 2017. Subjective 52-year-old male with cholelithiasis and acute cholecystitis. Overall doing well, no complaints this morning, tolerated diet yesterday without complaint. He has been n.p.o. since midnight. Objective Vital Signs: Date Time Temp Pulse Resp B/P (MAP) Pulse Ox O2 Delivery O2 Flow Rate FiO2 07/08/17 04:00 Room Air 07/08/17 03:44 36.5 55 18 124/71 (88) 96 Room Air 07/08/17 00:01 Room Air 07/08/17 00:01 36.7 60 18 106/61 (76) 95 07/07/17 20:00 Room Air 07/07/17 19:27 37.0 63 18 139/83 (101) 95 Room Air 07/07/17 16:00 Room Air 07/07/17 15:31 36.5 64 18 132/84 (100) 92 Room Air 07/07/17 12:45 36.8 66 16 132/82 (99) 98 Room Air 07/07/17 12:00 Room Air 07/07/17 08:22 36.8 64 20 120/73 (89) 93 Room Air 07/07/17 08:00 Room Air General Appearance: WD/WN, no apparent distress Head: normocephalic, atraumatic Abdomen: normal bowel sounds, non tender, non distended, soft, no organomegaly , no pulsatile mass Laboratory Results: Results Past 24 Hours Test 07/07/17 19:52 07/08/17 06:14 Range/Units Troponin I < 0.015 0-0.045 ng/ml White Blood Count 7.17 4.8-10.8 K/uL Red Blood Count 4.53 4.7-6.1 M/uL Hemoglobin 13.5 14.0-18.0 g/dL Hematocrit 39.8 42-52 % Mean Corpuscular Volume 87.9 80-100 fL Mean Corpuscular Hemoglobin 29.8 25-34 pg Mean Corpuscular Hemoglobin Concent 33.9 32-36 g/dl Platelet Count 152 130-400 K/uL Mean Platelet Volume 9.7 7.4-10.4 fL Neutrophils (%) (Auto) 48.1 % Lymphocytes (%) (Auto) 37.2 % Monocytes (%) (Auto) 10.6 % Eosinophils (%) (Auto) 3.1 % Basophils (%) (Auto) 0.4 % Neutrophils # (Auto) 3.45 1.4-6.5 K/uL Lymphocytes # (Auto) 2.67 1.2-3.4 K/uL Monocytes # (Auto) 0.76 0.11-0.59 K/uL Eosinophils # (Auto) 0.22 0-0.5 K/uL Basophils # (Auto) 0.03 0-0.2 K/uL RDW Standard Deviation 38.6 36.4-46.3 fL RDW Coefficient of Variation 12.1 11.5-14.5 % Immature Granulocyte % (Auto) 0.6 % Immature Granulocyte # (Auto) 0.04 0.00-0.02 K/uL Sodium Level 137 136-145 mmol/L Potassium Level 3.9 3.5-5.1 mmol/L Chloride Level 105 98-107 mmol/L Carbon Dioxide Level 29 21-32 mmol/L Anion Gap 3.0 3-11 mmol/L Blood Urea Nitrogen 14 7-18 mg/dl Creatinine 0.99 0.60-1.40 mg/dl Est Creatinine Clear Calc Drug Dose 105.8 ml/min Estimated GFR () 99.7 Estimated GFR (Non- 86.0 BUN/Creatinine Ratio 13.9 10-20 Random Glucose 96 70-99 mg/dl Calcium Level 8.0 8.5-10.1 mg/dl Magnesium Level 2.3 1.8-2.4 mg/dl Assessment & Plan Acute calculus cholecystitis Plan for laparoscopic cholecystectomy with possible cholangiogram today The risks were reviewed To floor postop, advance diet Antibiotics preop
[2017-07-08] MEDS ORDERED: CEFOXITIN IV 2,000 MG in DEXTROSE 5% 50ML 50 ML IV ONE (07:30)
[2017-07-08] MEDS ORDERED: CEFOXITIN SOD 1 GM VIAL ONE (07:44)
[2017-07-08] MEDS ORDERED: DEXAMETHASONE SOD INJ 4 MG/ML VIAL ONE (07:54)
[2017-07-08] MEDS ORDERED: ONDANSETRON INJ 2 MG/ML 2 ML VIAL ONE (08:01)
[2017-07-08] MEDS ORDERED: GLYCOPYRROLATE INJ 0.2 MG/ML VIAL ONE (08:02)
[2017-07-08] MEDS ORDERED: NEOSTIGMINE METHYLSULFATE 5 MG/5 ML SYR ONE (08:02)
--- NOTE | 2017-07-08 08:31 | [facility] Post Operative Brief Note ---
Immediate Operative Summary Operative Date Jul 08, 2017. Pre-Operative Diagnosis Acute calculus cholecystitis Post-Operative Diagnosis Acute calculus cholecystitis Procedure(s) Performed Laparoscopic Cholecystectomy Surgeon Dr. Estrada [employer] [facility] Cash[employer] Surgeon(s) Landen Titus PA-C Estimated Blood Loss 9 cc Findings Consistent with Post-Op Diagnosis window of safety obtained Specimens A: Gallbladder and contents Drains None Anesthesia Type General Complication(s) none Disposition Accompanied Pt To Recover: no Disposition: Recovery Room / PACU
--- NOTE | 2017-07-08 08:39 | [facility] Operative Report ---
Operative Report Operative Date Jul 08, 2017. Pre-Operative Diagnosis Acute calculus cholecystitis Post-Operative Diagnosis same Procedure(s) Performed laparoscopic cholecystectomy Surgeon Dr. Estrada Precast Worker Surgeon(s) Landen Titus PA-C Estimated Blood Loss 9 cc Findings window of safety obtained, cystic duct doubly clipped and divided Specimens A: Gallbladder and contents Drains none Anesthesia GETA Complication(s) None Disposition Recovery Room / PACU Indications 52-year-old male admitted with epigastric and chest pain, right upper quadrant ultrasound showed gallstones and HIDA scan showed nonfilling of the gallbladder indicating chronic cholecystitis. Plan for laparoscopic cholecystectomy with possible cholangiogram. The risks of the procedure were discussed, all questions were answered, and the patient agreed to proceed with surgery as planned. Description of Procedure The patient was properly identified, consented, and taken to the operating room where he was placed in the supine position. General endotracheal anesthesia was induced. SCDs and a safety belt were placed. Preoperative antibiotics were administered. The patient's abdomen was prepped and draped in the standard sterile fashion. A surgical timeout was performed and all parties were in agreement that this was the correct patient and procedure to be performed and we continued as planned. An incision was made superior and to the left of the umbilicus overlying the rectus muscle and the Veress needle was inserted. Saline drop test confirmed entry into the peritoneum. The abdomen was insufflated with carbon dioxide which the patient tolerated without incident. The abdomen was then entered using the Optiview technique and a 5 mm trocar. The laparoscope was inserted and no damage from initial trocar or Veress needle placement was noted, no gross abnormalities were noted within the 4 quadrants of the abdomen. An 11 mm port was placed in the subxiphoid position and two 5 mm ports were then placed in the right subcostal position. The patient was placed in reverse Trendelenburg position and rotated towards the left. The dome of the gallbladder was retracted towards the left upper quadrant and the infundibulum was retracted toward the right lower quadrant revealing Calot' s triangle. The gallbladder is moderately inflamed. Peritoneal attachments were taken down with electrocautery and blunt dissection. The cystic duct and artery were circumferentially dissected. A window of safety was obtained showing the cystic duct entering the gallbladder with no aberrant structures noted. The cystic duct and artery were doubly clipped and divided. The gallbladder was then lifted off the gallbladder fossa with electrocautery. The gallbladder was placed in an Endo Catch bag and removed through the subxiphoid port site. The right upper quadrant was irrigated and hemostasis was found to be good. 5 mm trochars were removed under direct visualization and the abdomen was allowed to collapse. The subxiphoid port site fascia was closed with 0 Vicryl suture. The wound was irrigated, and the skin of all ports was closed with 4-0 Monocryl subcuticular sutures. Dermabond was placed over the wounds. The patient was extubated in the operating room and taken to the PACU where he recovered without apparent incident. All sponge, instrument and needle counts were correct at the conclusion of the procedure. The patient tolerated the procedure well. The physician's assistant store leader was present and scrubbed for the entirety of the case. He was essential in positioning the patient, prepping and draping, retraction and exposure, placement of the ports, driving the laparoscope, removal of the gallbladder, closure of the incisions, and placement of the dressings. I attest to the content of the Intraoperative Record and any orders documented therein. Any exceptions are noted below.
[2017-07-08] MEDS ORDERED: EpHEDrine SULFATE INJ 50 MG/ML AMP IV PRN (08:45)
[2017-07-08] MEDS ORDERED: ONDANSETRON INJ 2 MG/ML 2 ML VIAL IV PRN (08:45)
[2017-07-08] MEDS ORDERED: MEPERIDINE HCL 25 MG/ML CARP IV PRN (08:45)
[2017-07-08] MEDS ORDERED: ATROPINE SULFATE 0.1 MG/ML 5ML SYR IV PRN (08:45)
[2017-07-08] MEDS ORDERED: OXYCODONE/ACETAMINOPHEN 5-325 TAB PO PRN (08:45)
[2017-07-08] MEDS ORDERED: FENTANYL CITRATE INJ 50 MCG/1 ML 2 ML VIAL IV PRN (08:45)
[2017-07-08] MEDS ORDERED: HYDROmorphone INJ 2 MG/ML SYR/VIAL IV PRN (08:45)
[2017-07-08] MEDS ORDERED: LABETALOL HCL IV 5 MG/ML 20ML IV PRN (08:45)
[2017-07-08] MEDS ORDERED: OXYC-57 PO (08:46)
--- NOTE | 2017-07-08 08:48 | Discharge Instructions ---
Discharge Instructions Date of Service Jul 08, 2017. Admission Reason for Admission: Chest Pain Discharge Discharge Diagnosis / Problem: chronic cholecystitis Discharge Goals Goal(s): Decrease discomfort Activity Recommendations Activity Limitations: as noted below Lifting Limitations: no more than 10 pounds Shower/Bathe: no limitations Driving or Machine Use: resume 3 days after discharge . Instructions / Follow-Up Instructions / Follow-Up Dr. Estrada in 2 weeks, call [phone] to schedule, [address] Current Hospital Diet Patient's current hospital diet: AHA Diet (Heart Healthy) Discharge Diet Recommended Diet: Regular Diet Procedures Procedures Performed: Laparoscopic Cholecystectomy Pending Studies Studies pending at discharge: yes List of pending studies: pathology Laboratory Results Hemoglobin A1c Test 07/07/17 05:44 Range/Units Estimated Average Glucose 117 mg/dl Hemoglobin A1c 5.7 H 4.5-5.6 % Lipid Panel Test 07/07/17 05:44 Range/Units Triglycerides Level 168 H 0-150 mg/dl Cholesterol Level 188 0-200 mg/dl HDL Cholesterol 30 mg/dl Cholesterol/HDL Ratio 6.3 LDL Cholesterol, Calculated 124 mg/dl Medical Emergencies . Who to Call and When: Medical Emergencies: If at any time you feel your situation is an emergency, please call 911 immediately. . Non-Emergent Contact Non-Emergency issues call your: Surgeon Call Non-Emergent contact if: you have a fever, temperature is above 101.5, your pain is not controlled, you have any medication questions . "Provider Documentation" section prepared by Fortino Titus. . [place] Drug Monitoring Program Search Results: no issues identified
--- NOTE | 2017-07-08 09:50 | Anesthesiology Progress Note ---
Anesthesia Post Op Note Date & Time Jul 08, 2017 at 09:49 Vital Signs Pain Intensity: 3 Vital Signs Past 12 Hours Date Time Temp Pulse Resp B/P (MAP) Pulse Ox O2 Delivery O2 Flow Rate FiO2 07/08/17 09:15 36.4 64 16 121/79 96 Oxymask 3 07/08/17 09:05 54 16 135/82 100 Oxymask 3 07/08/17 08:55 71 18 147/93 100 Oxymask 5 07/08/17 08:46 36.6 83 16 136/97 95 Oxymask 10 07/08/17 04:00 Room Air 07/08/17 03:44 36.5 55 18 124/71 (88) 96 Room Air 07/08/17 00:01 Room Air 07/08/17 00:01 36.7 60 18 106/61 (76) 95 Notes Mental Status: alert / awake / arousable, participated in evaluation Pt Amnestic to Procedure: Yes Nausea / Vomiting: adequately controlled Pain: adequately controlled Airway Patency, RR, SpO2: stable & adequate BP & HR: stable & adequate Hydration State: stable & adequate Anesthetic Complications: no major complications apparent
[2017-07-08] MEDS: PANTOprazole SOD 40 MG TAB PO SCH (10:34)
[2017-07-08] MEDS: SODIUM CHLORIDE 0.9% 1000ML 1,000 ML IV SCH (10:34)
--- NOTE | 2017-07-08 14:15 | Progress Note ---
Medicine Progress Note Date & Time of Visit: Jul 08, 2017 at 14:09. Subjective Seen sitting up in bedside chair comfortable Status post laparoscopic cholecystectomy Feels somewhat bloated but otherwise no abdominal pain, nausea No chest pain, shortness of breath, palpitations, dizziness Would like to go home today No other symptoms Objective Last 8 Hrs Date Time Temp Pulse Resp B/P (MAP) Pulse Ox O2 Delivery O2 Flow Rate FiO2 07/08/17 12:00 Room Air Oxymask 07/08/17 10:40 81 18 132/79 (96) 95 Room Air 07/08/17 10:24 37.0 83 20 132/79 (96) 93 Room Air 07/08/17 10:15 87 18 148/84 (105) 92 Room Air 07/08/17 09:45 Room Air Oxymask 07/08/17 09:45 36.8 60 18 130/77 (94) 94 Room Air 60 07/08/17 09:15 36.4 64 16 121/79 96 Oxymask 3 07/08/17 09:05 54 16 135/82 100 Oxymask 3 07/08/17 08:55 71 18 147/93 100 Oxymask 5 07/08/17 08:46 36.6 83 16 136/97 95 Oxymask 10 Physical Exam: General-oriented 3, not in distress, speaking in sentences, no accessory muscle Head- atraumatic Eyes- PERRL, EOMI, anicteric ENT- oropharynx clear Neck- supple, no JVD, no adenopathy, no thyromegaly Lungs- clear breath sounds bilaterally Heart- regular rhythm; no murmur, normal rate Abdomen- normal bowel sounds, positive laparoscopic cholecystectomy scars no bleeding discharge, soft, nontender Extremities- no pretibial edema, no calf tenderness; peripheral pulses intact Neuro- alert, oriented x 3; no gross focal neurologic deficits Skin- warm & dry Laboratory Results: Last 24 Hours Test 07/07/17 19:52 07/08/17 06:14 Troponin I < 0.015 ng/ml White Blood Count 7.17 K/uL Red Blood Count 4.53 M/uL Hemoglobin 13.5 g/dL Hematocrit 39.8 % Mean Corpuscular Volume 87.9 fL Mean Corpuscular Hemoglobin 29.8 pg Mean Corpuscular Hemoglobin Concent 33.9 g/dl Platelet Count 152 K/uL Mean Platelet Volume 9.7 fL Neutrophils (%) (Auto) 48.1 % Lymphocytes (%) (Auto) 37.2 % Monocytes (%) (Auto) 10.6 % Eosinophils (%) (Auto) 3.1 % Basophils (%) (Auto) 0.4 % Neutrophils # (Auto) 3.45 K/uL Lymphocytes # (Auto) 2.67 K/uL Monocytes # (Auto) 0.76 K/uL Eosinophils # (Auto) 0.22 K/uL Basophils # (Auto) 0.03 K/uL RDW Standard Deviation 38.6 fL RDW Coefficient of Variation 12.1 % Immature Granulocyte % (Auto) 0.6 % Immature Granulocyte # (Auto) 0.04 K/uL Sodium Level 137 mmol/L Potassium Level 3.9 mmol/L Chloride Level 105 mmol/L Carbon Dioxide Level 29 mmol/L Anion Gap 3.0 mmol/L Blood Urea Nitrogen 14 mg/dl Creatinine 0.99 mg/dl Est Creatinine Clear Calc Drug Dose 105.8 ml/min Estimated GFR () 99.7 Estimated GFR (Non- 86.0 BUN/Creatinine Ratio 13.9 Random Glucose 96 mg/dl Calcium Level 8.0 mg/dl Magnesium Level 2.3 mg/dl Assessment & Plan ACUTE CHOLECYSTITIS Most likely etiology of right-sided chest pain HIDA scan consistent with chronic cholecystitis Status post laparoscopic cholecystectomy by Dr. Milad bucio on 07/08/2017 Cleared for discharge to home by general surgery Follow-up with general surgeon Dr. Milad Bucio in 2 weeks Other workup for right-sided chest pain: Troponin negative Echo no signs of ischemia CT chest no PE History of anxiety. Continue Zoloft. History of gastroesophageal reflux disease. Continue Prilosec. History of lipid disorder, not on medication. LDL 124 HDL 30 HbA1c 5.7 Continue outpatient follow-up Disposition Discharge to home Follow up with primary care physician in 3-5 days Follow-up with general [facility]-Dr. Milad Bucio 2 weeks Current Inpatient Medications: Current Inpatient Medications Medications (Trade) Dose Ordered Sig/Asmita Route Start Time Stop Time Status Last Admin Dose Admin Ioversol (Optiray 320) 100 ml UD PRN IV 07/06/17 17:00 07/10/17 16:59 Sodium Chloride 1,000 ml @ 50 mls/hr Q20H IV 07/06/17 17:35 08/05/17 17:34 07/08/17 10:34 50 MLS/HR Acetaminophen (Tylenol Tab) 650 mg Q4H PRN PO 07/06/17 17:45 08/05/17 17:44 07/07/17 20:41 650 MG Al Hydrox/Mg Hydrox/Simethicone (Maalox Max Susp) 15 ml Q4H PRN PO 07/06/17 17:45 08/05/17 17:44 Ondansetron HCl (Zofran Inj) 4 mg Q6H PRN IV 07/06/17 17:45 08/05/17 17:44 Nitroglycerin (Nitrostat Tab) 0.4 mg UD PRN SL 07/06/17 17:45 08/05/17 17:44 Polyethylene (Miralax Powder Packet) 17 gm DAILY PRN PO 07/06/17 17:45 08/05/17 17:44 Pantoprazole Sodium (Protonix Tab) 40 mg DAILY PO 07/07/17 09:00 08/06/17 08:59 07/08/17 10:34 40 MG Morphine Sulfate (MoRPHine SULFATE INJ) 3 mg Q3HWA PRN IV 07/06/17 17:45 07/20/17 17:44 Miscellaneous (Iv Fluids Completed) 1 ea PRN PRN N/A 07/06/17 18:15 07/06/18 18:14 Sertraline HCl (Zoloft Tab) 100 mg HS PO 07/07/17 21:00 08/06/17 20:59 07/07/17 21:47 100 MG Oxycodone/ Acetaminophen (Percocet 5-325mg Tab) 2 tab Q4H PRN PO 07/08/17 08:45 07/22/17 08:44 07/08/17 12:00 2 TAB
--- NOTE | 2017-07-08 14:21 | Discharge Instructions ---
Discharge Instructions Date of Service Jul 08, 2017. Admission Reason for Admission: Chest Pain Discharge Discharge Diagnosis / Problem: ACUTE CHOLECYSTITIS Discharge Goals Goal(s): Diagnostic testing, Therapeutic intervention Activity Recommendations Activity Limitations: as noted below (No heavy exertion until reevaluated by primary care physician) Driving or Machine Use: No driving or operating machinery while taking Percocet . Instructions / Follow-Up Instructions / Follow-Up Please review your new medication list and follow instructions carefully. Please call your primary care physician or return to the ER immediately if with recurrence of symptoms, Increasing abdominal pain, fever chills, nausea/vomiting, discharge/bleeding on the surgical sites. Follow up with Dr. Echevarria on Friday07/11/17 at 12:25pm. Follow up with Surgeon Dr. Milad Estrada in 2 weeks. Current Hospital Diet Patient's current hospital diet: AHA Diet (Heart Healthy) Discharge Diet Recommended Diet: AHA Diet (Heart Healthy), Low Fat Diet Procedures Procedures Performed: Laparoscopic Cholecystectomy Pending Studies Studies pending at discharge: no Laboratory Results Hemoglobin A1c Test 07/07/17 05:44 Range/Units Estimated Average Glucose 117 mg/dl Hemoglobin A1c 5.7 H 4.5-5.6 % Lipid Panel Test 07/07/17 05:44 Range/Units Triglycerides Level 168 H 0-150 mg/dl Cholesterol Level 188 0-200 mg/dl HDL Cholesterol 30 mg/dl Cholesterol/HDL Ratio 6.3 LDL Cholesterol, Calculated 124 mg/dl Medical Emergencies . Who to Call and When: Medical Emergencies: If at any time you feel your situation is an emergency, please call 911 immediately. . Non-Emergent Contact Non-Emergency issues call your: Primary Care Provider, Surgeon Call Non-Emergent contact if: you have a fever, your pain is not controlled, your pain is worsening, wound has increased drainage, wound has increased redness, wound has increased pain, you have any medication questions . . "Provider Documentation" section prepared by Jared Rosales. .
--- NOTE | 2017-07-08 14:29 | Discharge Summary ---
Discharge Summary Date of Service Jul 08, 2017. Discharge Summary Admission Date: Jul 07, 2017 at 17:28 Discharge Date: Jul 08, 2017 Discharge Disposition: Home Principal Diagnosis: ACUTE CHOLECYSTITIS Secondary Diagnoses/Problems: Please refer to hospital course below. Procedures: ABD/PELVIS WITHOUT FOR STONE CLINICAL HISTORY: 52 years-old Male presenting with right flank, chest pain that woke him up from sleep, similar also happened 2 weeks ago, eval for stone. TECHNIQUE: Multidetector CT of the abdomen and pelvis was performed without the use of intravenous contrast. IV contrast: None. A dose lowering technique was used consistent with the principles of ALARA (as low as reasonably achievable). COMPARISON: None. CT DOSE (mGy.cm): The estimated cumulative dose is 1999.03 mGy.cm. FINDINGS: Hand Assembler topogram: Unremarkable. Lung bases: Minimal basilar opacities, likely atelectasis. Multichamber enlargement of the heart. Coronary artery calcification. No pericardial or pleural effusion. Liver: Normal morphology. Density consistent with hepatic steatosis. Biliary: No gross biliary ductal dilatation allowing for noncontrast technique. Gallbladder contains gallstones. Pancreas: Mild parenchymal atrophy. Spleen: Normal noncontrast appearance. Splenule noted. Adrenal glands: Normal noncontrast appearance. Kidneys and ureters: Normal noncontrast appearance. No nephrolithiasis. No hydronephrosis. Normal ureters. Bladder: Incompletely evaluated secondary to underdistention. Pelvic organs: Prostate enlargement likely secondary to benign prostatic hyperplasia. Bowel: Diverticulosis of the descending and sigmoid colon. No pericolonic fat infiltration. The appendix is normal. No bowel obstruction. Feces noted in the distal small bowel likely indicating delayed transit. Peritoneal cavity: No free fluid or intraperitoneal gas. Lymph nodes: No gross lymphadenopathy allowing for noncontrast technique. Vasculature: Atherosclerosis of the normal caliber abdominal aorta. Abdominal wall: Bilateral varicoceles suggested. Fat-containing left inguinal hernia. Bilateral gynecomastia. Musculoskeletal: Degenerative changes of the spine. Limbus vertebral body at L5. Multiple prominent Schmorl's nodes. IMPRESSION: 1. Hepatic steatosis. Correlate with liver function tests to exclude steatohepatitis as a cause for abdominal pain. 2. Diverticulosis. No evidence of diverticulitis. 3. Cholelithiasis. No evidence of cholecystitis. 4. No nephrolithiasis or hydronephrosis. 5. Prostatomegaly. 6. Possible bilateral varicoceles. GALLBLADDER-ABD LIMITED CLINICAL HISTORY: 52 years-old Male presenting with ruq eval for cholecystitis. TECHNIQUE: Real-time grayscale and limited color Doppler ultrasound imaging of the abdomen limited to the right upper quadrant was performed. COMPARISON: None. FINDINGS: Pancreas: Largely obscured due to overlying bowel gas. Liver: Markedly hyperechogenic parenchyma with obscuration of the right hemidiaphragm, likely indicating marked hepatic steatosis. The liver measures 16.5 cm in maximal sagittal dimension. Focal fatty sparing in the gallbladder fossa. Main portal vein patent with normal directional flow. Biliary: No intrahepatic biliary ductal dilatation. Common bile duct measures up to 5 mm in diameter. Gallbladder: Gallstones without evidence of gallbladder distention, wall thickening, or pericholecystic fluid or inflammatory change. Gallbladder wall has an apparent thickness of 4 mm though it is poorly delineated secondary to the degree of hepatic steatosis. Right kidney: Normal in appearance. No hydronephrosis. Ascites: None. Other: None. IMPRESSION: 1. Cholelithiasis without evidence of biliary ductal dilatation. No convincing sonographic evidence of cholecystitis. If there is continuing clinical concern for this diagnosis, nuclear medicine HIDA scan could be obtained. 2. Hepatic steatosis. Correlate with liver function tests to exclude steatohepatitis as a cause for abdominal pain. (CHEST FOR PE) ANGIO WITH CLINICAL HISTORY: 52 years-old Male presenting with chest pain, ^eval for PE. TECHNIQUE: Multidetector CT angiography of the chest was performed after administration of intravenous contrast. 3-D volumetric and/or maximum intensity projection (MIP) images were subsequently reconstructed for review. IV contrast: 91 mL of Optiray 320. A dose lowering technique was used consistent with the principles of ALARA (as low as reasonably achievable). COMPARISON: Chest x-ray performed earlier the same day. CT DOSE (mGy.cm): The estimated cumulative dose is 579.55 mGy.cm. FINDINGS: Hand Assembler topogram: Unremarkable. Pulmonary vasculature: The study is suboptimal for the assessment of the pulmonary vascular tree secondary to respiratory motion artifact. Allowing for limited image quality, no central filling defect to suggest pulmonary embolus. Main pulmonary artery is not enlarged. No flattening of the interventricular septum. No intracardiac filling defect. No reflux of contrast into the hepatic veins. Remaining chest: On soft tissue windows, normal thyroid and thoracic inlet. No axillary, supraclavicular, hilar, or mediastinal lymphadenopathy. Normal aorta. Normal heart size. No pericardial or pleural effusion. Hepatic steatosis. On lung windows, focal consolidation in the lingula in a bandlike distribution. Mild subpleural reticulation and groundglass opacities dependently. Respiratory motion artifact degrades evaluation of lung parenchyma. Central airways patent. On bone windows, degenerative changes of the spine. IMPRESSION: 1. Allowing for suboptimal image quality, no evidence of pulmonary embolus. 2. Bibasilar atelectasis with focal subsegmental atelectasis or scarring in the lingula. No convincing evidence of other acute intrathoracic pathology. 3. Hepatic steatosis. NUCLEAR MEDICINE HEPATOBILIARY SCAN CLINICAL HISTORY: Right upper quadrant abdominal pain. Gallstones. COMPARISON STUDY: Biliary ultrasound dated 07/06/2017 FINDINGS: The patient was injected with 5.2 mCi of technetium 99m Choletec. Anterior imaging was performed. Hepatic excretion appeared unremarkable. There was normal patches of activity into small bowel. The gallbladder was not visualized at 1 hour. The patient was injected with 2 mg of intravenous morphine. Imaging for an additional 30 minutes was performed. There was faint visualization of the gallbladder. Chronic cholecystitis is suspected. The cystic duct is felt to be patent. IMPRESSION: 1. Delayed visualization of the gallbladder. The findings suggest chronic cholecystitis. The cystic duct is felt to be currently patent ECHO: * -- Conclusions -- * The left ventricular wall motion is normal. * The left ventricular ejection Fraction = 55-60%. * Left ventricular diastolic function is normal. * There is no significant valvular heart disease. * There is borderline concentric left ventricular hypertrophy. Consultations: General Surgery Dr. Milad Bucio Pending Studies/Follow-Up: Please refer to hospital course below. Medication Reconciliation New Medications: Oxycodone/Acetaminophen 5MG/325MG (Percocet 5MG/325MG) Tab 1-2 TABLETS PO Q4H PRN for Pain, #20 TAB Continued Medications: Omeprazole (Prilosec) 40 Mg Capcr 40 MG PO DAILY, CAP Sertraline (Zoloft) 100 Mg Tab 100 MG PO DAILY, #10 TAB Tadalafil (Cialis) 10 Mg Tab 5 MG PO DAILY, TAB Discontinued Medications: Acetaminophen (Tylenol) 500 Mg Tab 1000 MG PO Q6 PRN for Pain, TAB Admission Information HPI (per Admitting provider): HISTORY OF PRESENT ILLNESS: A 52-year-old male with past medical history significant for GERD, anxiety, erectile dysfunction, lipid disorder, BPH, presents with right-sided abdominal pain. The patient says he woke up in the morning around 5:00 with severe lower right-sided chest pain radiating to his back associated with nausea and episode of vomiting and he came to the ER. The pain lasted almost until 3 p.m. and has subsided now. He received couple of doses of morphine in the ER. The patient says he had similar kind of pain a couple of weeks ago. At that time also he woke up in the night with the pain and it lasts about 2 hours and felt nauseous and then subsequently went to sleep. Since last 2 months he is feeling subjective fevers. Otherwise, he is doing okay. Denies any shortness of breath. No cough, no headaches, no dizziness, no earache. Recently had antibiotics for sinusitis. At that time, he had sore throat, but that is resolved now. No difficulty swallowing. No abdominal pain. Normal bowel and bladder movements. No skin rash. Currently, he is hemodynamically stable and resting comfortably. Physical Exam (per Admitting): GENERAL: The patient is of moderate build, not in distress. VITAL SIGNS: Temperature afebrile, pulse 62, respiratory rate 18, blood pressure 114/91 and oxygen 93% on room air. HEENT: No pallor, no icterus. Pupils equal, round, and react to light. NECK: No JVD, no neck masses, no carotid bruit. CARDIOVASCULAR: S1, S2 heard, regular rate and rhythm, no murmur, no gallop. RESPIRATORY SYSTEM: Normal AP diameter. No accessory muscle use. No wheezing, no crackles. ABDOMEN: Soft. Bowel sounds present. Nontender. No distention. No tenderness. CENTRAL NERVOUS SYSTEM: Cranial nerves II-XII grossly intact. Nonfocal. EXTREMITIES: No edema, no erythema. Hospital Course ACUTE CHOLECYSTITIS Most likely etiology of presenting symptom: right-sided chest pain HIDA scan consistent with chronic cholecystitis Status post laparoscopic cholecystectomy by Dr. Milad bucio on 07/08/2017 Cleared for discharge to home by general surgery Follow-up with general surgeon Dr. Milad Bucio in 2 weeks Other workup for right-sided chest pain: Troponins negative Echo no signs of ischemia CT chest no PE Hepatic Steatosis seen on Ct abdomen monitor History of anxiety. Continue Zoloft. History of gastroesophageal reflux disease. Continue Prilosec. History of lipid disorder not on medication. LDL 124 HDL 30 HbA1c 5.7 Continue outpatient follow-up Disposition Discharge to home Follow up with primary care physician in 3-5 days Follow-up with general surgeon [facility]-Dr. Milad Bucio 2 weeks Total time spent on discharge = 35 minutes This includes examination of the patient, discharge planning, medication reconciliation, and communication with other providers. Discharge Instructions Discharge Instructions Date of Service Jul 08, 2017. Admission Reason for Admission: Chest Pain Discharge Discharge Diagnosis / Problem: ACUTE CHOLECYSTITIS Discharge Goals Goal(s): Diagnostic testing, Therapeutic intervention Activity Recommendations Activity Limitations: as noted below (No heavy exertion until reevaluated by primary care physician) Driving or Machine Use: No driving or operating machinery while taking Percocet . Instructions / Follow-Up Instructions / Follow-Up Please review your new medication list and follow instructions carefully. Please call your primary care physician or return to the ER immediately if with recurrence of symptoms, Increasing abdominal pain, fever chills, nausea/vomiting, discharge/bleeding on the surgical sites. Follow up with Dr. Echevarria on Friday07/11/17 at 12:25pm. Follow up with Surgeon Dr. Milad Bucio in 2 weeks. Current Hospital Diet Patient's current hospital diet: AHA Diet (Heart Healthy) Discharge Diet Recommended Diet: AHA Diet (Heart Healthy), Low Fat Diet Procedures Procedures Performed: Laparoscopic Cholecystectomy Pending Studies Studies pending at discharge: no Laboratory Results Hemoglobin A1c Test 07/07/17 05:44 Range/Units Estimated Average Glucose 117 mg/dl Hemoglobin A1c 5.7 H 4.5-5.6 % Lipid Panel Test 07/07/17 05:44 Range/Units Triglycerides Level 168 H 0-150 mg/dl Cholesterol Level 188 0-200 mg/dl HDL Cholesterol 30 mg/dl Cholesterol/HDL Ratio 6.3 LDL Cholesterol, Calculated 124 mg/dl Medical Emergencies . Who to Call and When: Medical Emergencies: If at any time you feel your situation is an emergency, please call 911 immediately. . Non-Emergent Contact Non-Emergency issues call your: Primary Care Provider, Surgeon Call Non-Emergent contact if: you have a fever, your pain is not controlled, your pain is worsening, wound has increased drainage, wound has increased redness, wound has increased pain, you have any medication questions . . "Provider Documentation" section prepared by Jared Rosales. .
== END 2017-07-08 17:04 | disposition home or self-care (01) | DRG 419 ==
LOC: C.EDB 09:55 → C.2T 17:40 → ENRESERV 18:01 → OBSVTOIN 07-07 17:28
PROVIDERS: ADMIT Internal Medicine; ATTEND Internal Medicine
PROC: 0FT44ZZ Resection of Gallbladder, Percutaneous Endoscopic Approach (ICD-10-PCS; principal; 2017-07-08 07:15)
DX: K80.12 Calculus of gallbladder with acute and chronic cholecystitis without obstruction (principal); K21.9 Gastro-esophageal reflux disease without esophagitis; N40.0 Benign prostatic hyperplasia without lower urinary tract symptoms; F41.9 Anxiety disorder, unspecified; Z79.899 Other long term (current) drug therapy; Z88.6 Allergy status to analgesic agent; Z91.048 Other nonmedicinal substance allergy status